=== PATIENT | male | born 2005 | race Caucasian/White ===

== ENCOUNTER 2024-12-09 11:45 | Emergency (ER) | payer OTHER, SELFPAY ==
[2024-12-09 11:53] VITALS: BP 132/89; PULSE 91; TEMP 36.7; O2SAT 100; BMI 23.1
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
--- NOTE | 2024-12-09 12:17 | ECG_ITS ---
[facility] Test Date: 2024-12-09 Pat Name: ERMELINDA CARMEN Department: Room: - Gender: Male [employer]op Bending Machine Operator: : 2005 Requested By: MORENITA BLOUNT Order Number: [id number] Reading MD: CRYSTAL HENRIQUEZ Measurements Intervals [place] Rate: 86 P: 78 ME: 150 QRS: 84 QRSD: 114 T: 64 QT: 386 QTc: 430 Interpretive Statements 1100 Sinus rhythm 1574 with frequent ventricular premature complexes 2320 Nonspecific intraventricular conduction delay 9140 abnormal rhythm ECG No previous ECG available for comparison Electronically Signed On 12-12-2024 8:01:57 EST by CRYSTAL HENRIQUEZ
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
[2024-12-09] MEDS: KETOROLAC TROMETHAMINE 30 MG/ML VIAL 15 MG IVP (12:48)
[2024-12-09 13:01] LABS: Basophils Absolute Auto 0.1 10^3/uL (0.0-0.1); Basophils Percent Auto 0.8 % (0.2-2.0); Eosinophils Absolute Auto 0.1 10^3/uL (0.0-0.7); Eosinophils Percent Auto 1.3 % (0.9-7.0); Hematocrit 41.6 % (42.0-54.0); Hemoglobin 13.9 g/dL (14.0-18.0); Immature Granulocytes Abs Auto 0.02 10^3/uL (0.00-0.03); Immature Granulocytes Pct Auto 0.2 % (0.0-0.5); Lymphocytes Absolute Auto 1.7 10^3/uL (1.2-3.8); Lymphocytes Percent Auto 18.7 % (20.5-60.0); Mean Corpuscular HGB Conc 33.4 g/dL (29.9-35.2); Mean Corpuscular Hemoglobin 29.4 pg (25.9-34.0); Mean Corpuscular Volume 88.1 fL (80.0-94.0); Mean Platelet Volume 11.7 fL (9.5-13.5); Monocytes Absolute Auto 0.5 10^3/uL (0.3-0.8); Monocytes Percent Auto 5.7 % (1.7-12.0); Neutrophils Absolute Auto 6.7 10^3/uL (1.4-6.5); Neutrophils Percent Auto 73.3 % (43.0-75.0); Platelet Count 230 10^3/uL (150-450); Red Blood Count 4.72 10^6/uL (4.70-6.10); Red Cell Distribution Width 12.3 % (11.0-15.0); White Blood Count 9.1 10^3/uL (4.0-11.0)
[2024-12-09 13:15] LABS: Alanine Aminotransferase 20 U/L (16-63); Albumin Globulin Ratio 1.3; Albumin Level 4.1 g/dL (3.4-5.0); Alkaline Phosphatase 95 U/L (46-116); Anion Gap 10.5; Aspartate Amino Transferase 12 U/L (15-37); BUN Creatinine Ratio 7.1; Calcium 8.9 mg/dL (8.5-10.1); Carbon Dioxide 30.8 mmol/L (21.0-32.0); Chloride 106 mmol/L (98-107); Estimated GFR (African America >60 (>=60 mL/min/1.73m^2); Estimated GFR (Non-African Ame >60 (>=60 mL/min/1.73m^2); Globulin 3.1 g/dL; Glucose 105 mg/dL (74-106); Potassium 3.3 mmol/L (3.5-5.1); Sodium 144 mmol/L (136-145); Total Protein 7.2 g/dL (6.4-8.2)
[2024-12-09] MEDS: POTASSIUM CHLORIDE 10 MEQ ER TABLET 20 MEQ PO (13:36)
== END 2024-12-09 13:47 | disposition home or self-care (01) ==
PROVIDERS: Emergency Provider Emergency Medicine; PCP Family Medicine
DX: Z04.1 Encounter for examination and observation following transport accident (principal); R07.89 Other chest pain; R00.2 Palpitations
CPT/HCPCS: 36415; 71046; 80053; 85025; 93005; 96374; 99285; J1885